=== PATIENT | male | born 1960 | race Caucasian/White ===

== ENCOUNTER 2024-12-06 09:14 | Inpatient (IN) | payer OTHER, BC ==
[2024-12-06] MEDS ORDERED: LIDOCAINE 5% TOPICAL PATCH ONE (09:51)
[2024-12-06] MEDS ORDERED: KETOROLAC TROMETHAMINE 15 MG/ML VIAL ONE (09:51)
[2024-12-06] MEDS: KETOROLAC TROMETHAMINE 15 MG/ML VIAL IVPUSH ONE (10:10)
[2024-12-06] MEDS: LIDOCAINE 5% TOPICAL PATCH TP ONE (10:10)
[2024-12-06 10:12] LABS: PH,URINE 5.5 (5.0-8.0); RDW 14.3 % (12.2-16.4); URINE APPEARANCE CLEAR; URINE BILIRUBIN NEGATIVE (NEGATIVE); URINE COLOR YELLOW; URINE GLUCOSE (UA) NEGATIVE (NEGATIVE); URINE KETONE NEGATIVE (NEGATIVE); URINE LEUK ESTERASE NEGATIVE (NEGATIVE); URINE NITRITE NEGATIVE (NEGATIVE); URINE PROTEIN NEGATIVE (NEGATIVE); URINE UROBILINOGEN 0.2 mg/dL (0.2-1.0)
[2024-12-06 10:13] LABS: HEMATOCRIT 37.6 % (40.1-51.0); HEMOGLOBIN 12.2 g/dL (13.7-17.5); MCHC 32.4 g/dl (32.3-36.5); MEAN CELL VOLUME 83.2 fl (79.0-92.2); MEAN PLT VOLUME 9.1 fl (9.4-12.4); PLATELET COUNT 185 x10^3/uL (163-337)
[2024-12-06 11:12] LABS: POTASSIUM 3.9 mmol/L (3.5-5.1)
[2024-12-06 11:14] LABS: CALCIUM 9.1 mg/dL (8.5-10.1)
[2024-12-06 11:15] LABS: ALBUMIN 3.8 g/dl (3.4-5.0); BLOOD UREA NITROGEN 13.7 mg/dL (7-18)
[2024-12-06] MEDS ORDERED: diazePAM 5 MG TABLET ONE (11:27)
[2024-12-06] MEDS ORDERED: oxyCODONE HCL 5 MG TABLET ONE (11:27)
[2024-12-06] MEDS: oxyCODONE HCL 5 MG TABLET PO ONE (11:30)
[2024-12-06] MEDS: diazePAM 5 MG TABLET PO ONE (11:31)
[2024-12-06 11:34] LABS: TOT PROT 6.5 g/dl (6.4-8.2)
[2024-12-06] MEDS ORDERED: morphine SULFATE 4 MG/ML VIAL ONE (15:38)
[2024-12-06] MEDS: morphine SULFATE 4 MG/ML VIAL IVPUSH ONE (15:51)
[2024-12-06 16:02] LABS: INR 1.15 (0.83-1.09); PROTHROMBIN TIME (PATIENT) 12.7 SEC (9.7-13.0)
[2024-12-06] MEDS ORDERED: ACETAMINOPHEN 325 MG TABLET (FP) PO PRN (16:34)
[2024-12-06] MEDS ORDERED: MORPHINE SULFATE 2 MG/ML SYRINGE IVPUSH PRN (16:35)
[2024-12-06] MEDS: SODIUM CHLORIDE 1,000 ML IV SCH (18:49)
[2024-12-06 19:18] LABS: HCV DIAGNOSTIC IN-HOUSE W/RFLX NON-REACTIVE (NONREACTIVE)
[2024-12-06 19:20] LABS: HIV INTERPRETATION NEGATIVE (NEGATIVE)
[2024-12-06 20:09] VITALS: BMI 32.1
[2024-12-06] MEDS: PIPERACILLIN/TAZOB 3.375 GM 3.375 GM in DEXTROSE 5%-WATER - 50 ML IVPB SCH (20:48)
[2024-12-06] MEDS ORDERED: PIPERACILLIN/TAZOB 3.375 GM 3.375 GM in DEXTROSE 5%-WATER - 50 ML IVPB SCH (21:00)
[2024-12-06] MEDS: LIDOCAINE PATCH REMOVAL MC ONE (22:44)
[2024-12-07] MEDS: LOSARTAN POTASSIUM 50 MG TABLET PO SCH (09:30)
[2024-12-07 09:34] LABS: HEMATOCRIT 34.7 % (40.1-51.0); HEMOGLOBIN 11.5 g/dL (13.7-17.5); MCHC 33.1 g/dl (32.3-36.5); MEAN CELL VOLUME 82.8 fl (79.0-92.2); MEAN PLT VOLUME 9.2 fl (9.4-12.4); PLATELET COUNT 180 x10^3/uL (163-337); RDW 14.4 % (12.2-16.4)
[2024-12-07] MEDS ORDERED: PROPOFOL 40 ML ONE (09:51)
[2024-12-07] MEDS ORDERED: SUCCINYLCHOLINE CHLORIDE 200 MG/10 ML SYRINGE ONE (09:51)
[2024-12-07 09:55] LABS: POTASSIUM 4.1 mmol/L (3.5-5.1)
[2024-12-07 10:11] LABS: CALCIUM 8.6 mg/dL (8.5-10.1)
[2024-12-07 10:12] LABS: ALBUMIN 3.2 g/dl (3.4-5.0); BLOOD UREA NITROGEN 14.2 mg/dL (7-18); MAGNESIUM 2.1 mg/dL (1.8-2.4)
[2024-12-07 10:14] LABS: BILIRUBIN,TOTAL 1.6 mg/dL (0.2-1); TOT PROT 5.7 g/dl (6.4-8.2)
[2024-12-07 10:15] LABS: CREATININE 1.1 mg/dL (0.55-1.3)
[2024-12-07 10:16] LABS: PHOSPHOROUS 3.4 mg/dL (2.5-4.9)
[2024-12-07] MEDS ORDERED: BUPIVACAINE HCL/PF 0.25% (2.5MG/ML) 10 ML VIAL ONE (10:25)
[2024-12-07] MEDS ORDERED: LIDOCAINE HCL/PF 2% SDV 5ML VIAL ONE (10:43)
[2024-12-07] MEDS ORDERED: ROCURONIUM BROMIDE 50 MG/5 ML SYRINGE ONE (10:45)
[2024-12-07] MEDS: cefOXitin SODIUM 2 GM VIAL (RESTRICTED TO ID) IVPB ONE (10:45)
[2024-12-07] MEDS ORDERED: cefOXitin SODIUM 2 GM VIAL (RESTRICTED TO ID) IVPB ONE (10:56)
[2024-12-07] MEDS ORDERED: HEPARIN NA (PORCINE) 5,000 UNITS/ML 1ML VIAL ONE (10:57)
[2024-12-07] MEDS ORDERED: TRANEXAMIC ACID 1000 MG/10 ML VIAL ONE (11:43)
[2024-12-07] MEDS: BUPIVACAINE HCL/PF 0.25% (2.5MG/ML) 10 ML VIAL IJ ONE (11:56)
[2024-12-07] MEDS ORDERED: SUGAMMADEX SODIUM 200 MG/2 ML VIAL ONE (11:58)
[2024-12-07] MEDS: ONDANSETRON 4 MG/2 ML VIAL IVPUSH PRN (13:01)
[2024-12-07] MEDS ORDERED: ONDANSETRON 4 MG/2 ML VIAL ONE (13:01)
[2024-12-07] MEDS ORDERED: PROMETHAZINE HCL 25 MG/1 ML VIAL ONE (13:23)
[2024-12-07] MEDS: PROMETHAZINE HCL 25 MG/1 ML VIAL IVPB PRN (13:23)
[2024-12-07] MEDS ORDERED: LACTATED RINGERS SOLUTION 1,000 ML IV SCH (13:30)
[2024-12-07] MEDS: SODIUM CHLORIDE 1,000 ML IV SCH (13:47)
[2024-12-07] MEDS ORDERED: PIPERACILLIN/TAZOB 3.375 GM 3.375 GM in DEXTROSE 5%-WATER - 50 ML IVPB SCH (15:00)
[2024-12-07] MEDS: PIPERACILLIN/TAZOB 3.375 GM 3.375 GM in DEXTROSE 5%-WATER - 50 ML IVPB SCH (16:46)
[2024-12-08 09:02] LABS: MEAN CELL VOLUME 83.9 fl (79.0-92.2)
[2024-12-08 09:03] LABS: HEMATOCRIT 34.5 % (40.1-51.0); HEMOGLOBIN 11.1 g/dL (13.7-17.5); MCHC 32.2 g/dl (32.3-36.5); PLATELET COUNT 213 x10^3/uL (163-337)
[2024-12-08] MEDS: LOSARTAN POTASSIUM 50 MG TABLET PO SCH (09:09)
[2024-12-08 09:25] LABS: POTASSIUM 4.2 mmol/L (3.5-5.1)
[2024-12-08 09:27] LABS: CALCIUM 8.7 mg/dL (8.5-10.1)
[2024-12-08 09:28] LABS: ALBUMIN 3.2 g/dl (3.4-5.0); BLOOD UREA NITROGEN 14.5 mg/dL (7-18); MAGNESIUM 2.1 mg/dL (1.8-2.4)
[2024-12-08 09:31] LABS: CREATININE 1.3 mg/dL (0.55-1.3); PHOSPHOROUS 3.7 mg/dL (2.5-4.9)
[2024-12-08 09:32] LABS: TOT PROT 5.7 g/dl (6.4-8.2)
[2024-12-08] MEDS: ACETAMINOPHEN 325 MG TABLET (FP) PO PRN (20:34)
[2024-12-08] MEDS: PIPERACILLIN/TAZOB 3.375 GM 50 ML IVPB SCH (21:14)
[2024-12-08] MEDS: PIPERACILLIN/TAZOB 3.375 GM 3.375 GM in DEXTROSE 5%-WATER - 50 ML IVPB SCH ×2 (21:29→21:30)
[2024-12-09 08:21] LABS: HEMOGLOBIN 10.4 g/dL (13.7-17.5); RDW 14.4 % (12.2-16.4)
[2024-12-09 08:22] LABS: HEMATOCRIT 32.2 % (40.1-51.0); INR 1.19 (0.83-1.09); MCHC 32.3 g/dl (32.3-36.5); MEAN CELL VOLUME 85.4 fl (79.0-92.2); MEAN PLT VOLUME 9.4 fl (9.4-12.4); PLATELET COUNT 183 x10^3/uL (163-337)
[2024-12-09 08:36] LABS: POTASSIUM 4.3 mmol/L (3.5-5.1)
[2024-12-09 08:39] LABS: CALCIUM 8.4 mg/dL (8.5-10.1)
[2024-12-09 08:40] LABS: ALBUMIN 2.9 g/dl (3.4-5.0); BLOOD UREA NITROGEN 16.3 mg/dL (7-18); MAGNESIUM 2.2 mg/dL (1.8-2.4)
[2024-12-09 08:43] LABS: CREATININE 1.3 mg/dL (0.55-1.3); PHOSPHOROUS 3.2 mg/dL (2.5-4.9)
[2024-12-09 08:44] LABS: BILIRUBIN,TOTAL 1.1 mg/dL (0.2-1); TOT PROT 5.3 g/dl (6.4-8.2)
[2024-12-09] MEDS ORDERED: KETAMINE HCL 200 MG/20 ML VIAL ONE (11:06)
[2024-12-09] MEDS ORDERED: MIDAZOLAM HCL 2 MG/2 ML SINGLE DOSE VIAL ONE (11:06)
[2024-12-09] MEDS ORDERED: LIDOCAINE VISCOUS 2% ORAL/TOP 15 ML UNIT-DOSE CUP ONE (11:06)
[2024-12-09] MEDS: oxyCODONE HCL 5 MG TABLET PO PRN (14:46)
[2024-12-09] MEDS: PIPERACILLIN/TAZOB 3.375 GM 3.375 GM in DEXTROSE 5%-WATER - 50 ML IVPB SCH ×2 (17:34→17:35)
[2024-12-09 21:53] VITALS: RESP 18
[2024-12-10 08:46] LABS: HEMATOCRIT 32.9 % (40.1-51.0); HEMOGLOBIN 10.6 g/dL (13.7-17.5); MCHC 32.2 g/dl (32.3-36.5); MEAN CELL VOLUME 84.8 fl (79.0-92.2); MEAN PLT VOLUME 9.3 fl (9.4-12.4); PLATELET COUNT 199 x10^3/uL (163-337); RDW 14.2 % (12.2-16.4)
[2024-12-10 09:17] LABS: POTASSIUM 4.5 mmol/L (3.5-5.1)
[2024-12-10 09:19] LABS: ALBUMIN 3.1 g/dl (3.4-5.0); BLOOD UREA NITROGEN 12.4 mg/dL (7-18)
[2024-12-10 09:21] LABS: CREATININE 1.2 mg/dL (0.55-1.3)
[2024-12-10 09:24] LABS: TOT PROT 5.7 g/dl (6.4-8.2)
[2024-12-10 09:51] LABS: PHOSPHOROUS 4.2 mg/dL (2.5-4.9)
[2024-12-11 09:08] VITALS: PULSE 85; TEMP 98.4
[2024-12-11 09:09] VITALS: BP 122/78
[2024-12-11 10:41] LABS: HEMOGLOBIN 11.4 g/dL (13.7-17.5)
[2024-12-11 10:43] LABS: HEMATOCRIT 35.2 % (40.1-51.0); MCHC 32.4 g/dl (32.3-36.5); MEAN CELL VOLUME 83.6 fl (79.0-92.2); MEAN PLT VOLUME 9.4 fl (9.4-12.4); PLATELET COUNT 222 x10^3/uL (163-337)
[2024-12-11 11:07] LABS: POTASSIUM 3.9 mmol/L (3.5-5.1)
[2024-12-11 11:12] LABS: ALBUMIN 3.4 g/dl (3.4-5.0); BLOOD UREA NITROGEN 11.9 mg/dL (7-18); CALCIUM 9.3 mg/dL (8.5-10.1)
[2024-12-11 11:16] LABS: CREATININE 1.2 mg/dL (0.55-1.3)
[2024-12-11 11:17] LABS: BILIRUBIN,TOTAL 0.9 mg/dL (0.2-1); TOT PROT 6.1 g/dl (6.4-8.2)
[2024-12-12 10:08] LABS: CARCINOEMBRYONIC ANTIGEN 1.7 ng/mL (0.0-4.7)
== END 2024-12-11 13:07 | disposition home or self-care (01) | DRG 418 ==
LOC: JER 09:14 → JERBED 14:25 → J5S 19:14
PROC: 0FT44ZZ Resection of Gallbladder, Percutaneous Endoscopic Approach (ICD-10-PCS; principal; 2024-12-07 15:00)
PROC: BD42ZZZ Ultrasonography of Stomach (ICD-10-PCS; 2024-12-09)
PROC: 0DB68ZX Excision of Stomach, Via Natural or Artificial Opening Endoscopic, Diagnostic (ICD-10-PCS; 2024-12-09 11:45)
DX: K80.00 Calculus of gallbladder with acute cholecystitis without obstruction (principal); C16.0 Malignant neoplasm of cardia; C91.10 Chronic lymphocytic leukemia of B-cell type not having achieved remission; I10 Essential (primary) hypertension; K86.89 Other specified diseases of pancreas; G47.33 Obstructive sleep apnea (adult) (pediatric); R74.01 Elevation of levels of liver transaminase levels
CPT/HCPCS: 36415; 71250-TC; 72131-TC; 74177-TC; 74181-TC; 76705-TC; 80053; 81003; 82378; 83735; 84100; 85025; 85610; 86301; 86803; 86850; 86900; 86901; 87086; 87389; 88300-TC; 88304-TC; 88305-TC; 88341-TC; 88342-TC; 93005; 93010; 94660; 94760; 99285-25; Q9967